=== PATIENT | male | born 1975 | race Caucasian/White ===

== ENCOUNTER 2024-11-23 16:41 | Emergency (ER) | payer SELFPAY ==
[~2024-11-23] VITALS: Ht 170.2 cm; Wt 77.3 kg
[2024-11-23 16:45] VITALS: BP 92/50; PULSE 102; RESP 16; TEMP 99; O2SAT 97
--- NOTE | 2024-11-23 16:46 | Physician Documentation ---
History of Present Illness ~ Stated Complaint: PALPITATIONS HPI 49-year-old male brought in by EMS for complaint of palpitations for the past 2 hours. Denies shortness of breath or chest pain. EMS he was sinus tach around 100 beats per minute, was seen last week for the same thing at [place]. Departure Referrals: NO PRIMARY CARE PROVIDER (PCP) Additional Comment Medical Screen Exam This patient recieved a medical screening examination. After reviewing the individual's medical complaints with presenting symptoms and performing an appropriate physical examination, it was determined that no emergency medical condition is present. This individual is also not a women having contractions. PENG CORTES [facility] Nov 23, 2024 16:46
--- NOTE | 2024-11-23 16:54 | ELECTROCARDIOGRAPH REPORT ---
[facility] Test Date: 2024-11-23 Test Time: 16:50:53 Pat Name: KRISTINA CUEVAS Department: [facility]- Patient ID: [facility]-[id number] Room: Gender: M Funeral Director: : 1975 Requested By: LESTER QUACH Order Number: [id number] Reading MD: Dr. Lester Quach Measurements Intervals [place] Rate: 98 P: 42 WA: 158 QRS: 38 QRSD: 84 T: 0 QT: 325 QTc: 415 Interpretive Statements Pacemaker spikes or artifacts Sinus rhythm Borderline abnrm T, anterolateral leads Electronically Signed On 11-23-2024 17:06:[address] Lester Quach Please click the below link to view image of tracing.
[2024-11-23 17:29] LABS: BASOPHILS % (AUTO) 0.5 % (0-1); EOSINOPHILS # (AUTO) 0.2 X10'3 (0-0.9); HEMATOCRIT 34.4 % (42.0-52.0); HEMOGLOBIN 11.8 g/dl (14.0-17.9); LYMPHOCYTES % (AUTO) 23.1 % (21-51); MEAN CORPUSCULAR HEMOGLOBIN 33.2 PG (27.0-31.0); MEAN CORPUSCULAR HGB CONC 34.4 g/dL (33.0-36.5); MEAN CORPUSCULAR VOLUME 96.6 FL (78-98); MEAN PLATELET VOLUME 8.9 FL (7.4-10.4); MONOCYTES # (AUTO) 0.4 X10'3 (0-0.9); MONOCYTES % (AUTO) 4.6 % (2-12); NEUTROPHILS % (AUTO) 69.8 % (42-75); PLATELET COUNT 240 X10'3 (140-440); RED BLOOD COUNT 3.56 X10'6 (4.70-6.10); RED CELL DISTRIBUTION WIDTH 13.6 % (11.5-14.5); WHITE BLOOD COUNT 8.6 X10'3 (4.5-11.0)
--- NOTE | 2024-11-23 17:42 | RADIOLOGY REPORT ---
EXAM: DI CHEST,SINGLE VIEW TECHNIQUE: Single frontal chest radiograph CLINICAL HISTORY: CP COMPARISON: None Findings/Impression: Frontal chest radiograph demonstrates no acute osseous or superficial soft tissue abnormalities. The trachea is midline. The cardiac silhouette and mediastinum are within normal limits. No pneumothorax, pleural effusions, or consolidations.
[2024-11-23 17:56] LABS: ALBUMIN 3.4 G/DL (3.4-5.0); ANION GAP 5 (8-16); BLOOD UREA NITROGEN 8 MG/DL (7-18); BUN/CREATININE RATIO 10.1 (10.0-20.0); CHLORIDE 108 MMOL/L (99-107); CREATININE 0.79 MG/DL (0.60-1.10); GLUCOSE 96 MG/DL (70-104); POTASSIUM 4.1 MMOL/L (3.5-5.1); PRO BRAIN NATRIURETIC PEPTIDE 596 PG/ML (0-125); SODIUM 142 MMOL/L (135-145); TOTAL CARBON DIOXIDE 29.1 MMOL/L (24-32); eCRCL 107 ML/MIN; eGFR > 90 ML/MIN
== END 2024-11-23 19:08 | disposition left against medical advice (07) ==
LOC: ER 16:43
DX: R00.2 Palpitations (principal)
CPT/HCPCS: 36415; 71045; 80048; 83880; 84484; 85025; 93005

== ENCOUNTER 2024-12-18 19:29 | Emergency (ER) | payer MEDICAID ==
[~2024-12-18] VITALS: Ht 162.6 cm; Wt 48.1 kg
[~2024-12-18 19:29] MED LIST: MUPI22OI30 TOP
[2024-12-18 19:32] VITALS: BP 119/81; PULSE 102; RESP 15; TEMP 96.8; O2SAT 98
--- NOTE | 2024-12-18 19:54 | Physician Documentation ---
History of Present Illness ~ Chief Complaint: Rash Stated Complaint: NECK LESION HPI 49 m returns to the ED for a rash on his neck is itchy and reports that he believes he has mites in the back of his neck. Recently been seen here in the ED for it. Patient has known methamphetamine user. Medication Reconciliation Allergies: Coded Allergies: No Known Allergies (Unverified , 12/18/24) Scheduled Mupirocin* (Bactroban*), 1 APPLIC TOP Q8H Past Medical History Past Medical History: No Pertinent History Physical Exam Vital Signs: Temperature: 96.8, Source: Temporal, Heart Rate: 102, Respiratory Rate: 15, BP: 119/81, Pulse Oximetry: 98, Weight: 48.100 Physical Exam General: Alert, no apparent distress. Skin: Normal color, warm and dry. No edema, no ecchymosis. Notable healing lesion with scar tissue in the area where patient states he has mites Progress Results/Orders Results/Orders Completed Orders - JEFFERSON JUNE [employer] Mupirocin Ointment (Bactroban Ointment) (12/18/24 19:48) Vital Signs 12/18/24 19:32 Temp 96.8 Pulse 102 Resp 15 B/P (MAP) 119/81 Pulse Ox 98 Medical Decision Making Findings Although this patient reports having might safe after an interview him, I suspect a delusions of parasitosis is a more appropriate differential. However I'm going to provide him with mupirocin for his various areas where he has picked at his skin Differential Dx:Considerations: Include: Abscess, AIDS/HIV, Anthrax (cutaneous), Atopic dermatitis, Candidiasis, Contact dermatitis, Drug reaction, Erythema multiforme, Erysipelas, Gangrene, Herpes zoster, Herpes simplex, Hidradenitis suppurativa, Impetigo, Intertrigo, Lymes disease, Molluscum contagiosum, Osteomyelitis, Pediculosis, Pityriasis rosea, Psoriaisis, RMSF, Rosacea, Scabies, Scarlet fever, Tinea, Urticaria, Varicella, Viral exanthema, Other Departure Disposition: HOME / SELF CARE / HOMELESS Impression: Primary Impression: Urticaria Additional Impression: Crust on skin Condition: Stable Discharge Instructions: Cellulitis, Adult, Pruritus Referrals: NO PRIMARY CARE PROVIDER (PCP) Prescriptions Mupirocin* (Bactroban*) 22 Gm Tube 1 APPLIC TOP Q8H for 5 Days, #15 GM apply to affected area(s) Prov: JEFFERSON JUNE NP 12/18/24 Signature Scribe Signature: y Attestation: Scribed for Emergency,Department by Jefferson June - THEODORE . 12/18/24 20:01 JEFFERSON JUNE NP Dec 18, 2024 19:54
[2024-12-18] MEDS ORDERED: MUPI22OI30 TOP (20:01)
== END 2024-12-18 20:06 | disposition home or self-care (01) ==
LOC: ER 19:29
DX: L50.9 Urticaria, unspecified (principal); R23.4 Changes in skin texture
CPT/HCPCS: 99283

== ENCOUNTER 2024-12-20 16:30 | Emergency (ER) | payer MEDICAID ==
[~2024-12-20] VITALS: Ht 165.1 cm; Wt 49.1 kg
[2024-12-20 16:35] VITALS: BP 108/74; PULSE 109; RESP 14; TEMP 97.4; O2SAT 98
--- NOTE | 2024-12-20 16:47 | Physician Documentation ---
History of Present Illness ~ Chief Complaint: Bite-insect Stated Complaint: SKIN ISSUES Time Seen by MD: 16:46 HPI 49 yr old un-housed male presents to the emergency department reporting that he was bit on his left index finger by an unknown insect. He reports that he is concerned about infection and bugs entering the wound because it is very hot outside. Tetanus within 5 years?: Yes Medication Reconciliation Allergies: Coded Allergies: No Known Allergies (Unverified , 12/20/24) Scheduled Mupirocin* (Bactroban*), 1 APPLIC TOP Q8H Mupirocin* (Bactroban*), 1 APPLIC TOP Q8H Past Medical History Past Medical History: No Pertinent History Physical Exam Vital Signs: Temperature: 97.4, Source: Temporal, Heart Rate: 109, Respiratory Rate: 14, BP: 108/74, Pulse Oximetry: 98, Weight: 49.150 Physical Exam General: Alert, no apparent distress. Neck: Full range of motion. Respiratory: Lungs clear, no respiratory distress. Chest: No accessory muscle use. Cardiovascular: Regular rate and rhythm, no murmurs. Gastrointestinal: Soft, nontender, nondistended. Bowels sounds present. Extremities: Normal range of motion, no deformity. Neurologic: Oriented x4. Psychiatric: Normal mood and affect. Skin: Normal color, warm and dry. No edema, no ecchymosis. Superficial ovoid open area left index finger measuring approx 4 mm. No surrounding erythema. No purulent discharge. Progress Results/Orders Results/Orders Vital Signs 12/20/24 16:35 Temp 97.4 Pulse 109 Resp 14 B/P (MAP) 108/74 Pulse Ox 98 Medical Decision Making Differential Dx:Considerations: Include: Abrasion, Allergic reaction, Anap hylaxis, Cellulitis, Contusion, Fracture, Hematoma, Insect envenomation, Laceration, Neurovascular injury, Punture wound, Retained foreign body, Urticaria Departure Time of Disposition: 16:51 Disposition: 01 HOME / SELF CARE / HOMELESS Impression: Primary Impression: Wound Condition: Stable Discharge Instructions: Insect Bite, Adult, [id number] Additional Instructions: keep the wound clean and covered. Change bandaid daily. Return if worse. Referrals: NO PRIMARY CARE PROVIDER (PCP) Education Educated: Patient Educated regarding: diagnosis, treatment, prognosis, need for follow up Signature Scribe Signature: x Attestation: The note accurately reflects work and decisions made by me.Sven Arias NP 12/20/24 16:52 SVEN BARRIENTOS NP Dec 20, 2024 16:47
[2024-12-20] MEDS: bacitracin 15gm ointment TP ONE (16:56)
== END 2024-12-20 17:00 | disposition home or self-care (01) ==
LOC: ER 16:31
DX: S61.251A Open bite of left index finger without damage to nail, initial encounter (principal); Z59.00 Homelessness unspecified; Z79.899 Other long term (current) drug therapy; W57.XXXA Bitten or stung by nonvenomous insect and other nonvenomous arthropods, initial encounter; Y93.89 Activity, other specified; Y92.89 Other specified places as the place of occurrence of the external cause; Y99.8 Other external cause status
CPT/HCPCS: 99282

== ENCOUNTER 2024-12-21 06:17 | Emergency (ER) | payer MEDICAID ==
[~2024-12-21] VITALS: Ht 170.2 cm; Wt 75.0 kg
[2024-12-21 06:21] VITALS: BP 156/78; PULSE 107; RESP 18; TEMP 98.3; O2SAT 100
--- NOTE | 2024-12-21 06:50 | Physician Documentation ---
History of Present Illness General Chief Complaint: See Chief Complaint Stated Complaint: MENTAL HEALTH Time Seen by MD: 06:38 Primary Medical Doctor: None History of Present Illness Initial Comments The patient is a 49-year-old male with a history of psychiatric illness who comes in today with multiple delusional complaints (e.g., I was attacked by an surgeons and they made me yell at them.) He was here yesterday complaining that he had been bitten by an unknown insect on his finger and was concerned that other insects would find their way through the wound into his body. He denies any suicidal or homicidal thoughts. Medication Reconciliation Allergies: Coded Allergies: No Known Allergies (Unverified , 12/20/24) Scheduled Mupirocin* (Bactroban*), 1 APPLIC TOP Q8H Mupirocin* (Bactroban*), 1 APPLIC TOP Q8H Past Medical History Past Medical History: No Pertinent History Review of Systems ROS Constitutional: Denies chills, fatigue, fever, weight gain or weight loss. HEENT: Denies hearing loss, sinus pressure or visual changes. Respiratory: Denies cough, shortness of breath or wheezing. Cardiovascular: Denies chest pain, pain while walking (claudication), edema or palpitations. Gastrointestinal: Denies abdominal pain, blood in stool, constipation, diarrhea, heartburn, loss of appetite, nausea or vomiting. Genitourinary: Denies painful urination (dysuria), excessive amount of urine (polyuria) or urinary frequency. Metabolic/Endocrine: Denies cold intolerance, heat intolerance, excessive thirst (polydipsia) or excessive hunger (polyphagia). Neurological: Denies dizziness, extremity numbness, extremity weakness, headaches, seizures or tremors. Psychiatric: Patient complains of anxiety. He denies suicidal/homicidal ideation. Integumentary: Denies breast discharge, breast lump, hives, mole change(s), rash or skin lesion. Musculoskeletal: Denies back pain, joint pain, joint swelling or neck pain. Hematologic: Denies easily bleeding, easily bruises, lymphedema or issues with blood clots. Immunologic: Denies food allergies or seasonal allergies. Physical Exam Physical Exam Vital Signs: Temperature: 98.3, Source: Oral, Heart Rate: 107, Respiratory R ate: 18, BP: 156/78, Pulse Oximetry: 100, Weight: 75.000 Physical Exam Physical Exam Vitals and nursing note reviewed. Constitutional: General: Patient is awake, alert, oriented x 4 in no acute distress and well appearing. Speech is clear and lucid. Appearance: Normal appearance. Patient is not ill-appearing, toxic-appearing or diaphoretic. HENT: Head: Normocephalic and atraumatic. Mouth/Throat: Mouth: Mucous membranes are moist. Pharynx: Oropharynx is clear. Eyes: General: No scleral icterus. Extraocular Movements: Extraocular movements intact. Pupils: Pupils are equal, round, and reactive to light. Cardiovascular: Rate and Rhythm: Normal rate and regular rhythm. Heart sounds: No murmur heard. Pulmonary: Effort: No respiratory distress. Breath sounds: No wheezing, rhonchi or rales. Abdominal: General: There is no distension. Palpations: There is no fluid wave, hepatomegaly or mass. Tenderness: There is no abdominal tenderness. There is no guarding. Musculoskeletal: General: No swelling or deformity. Skin: Coloration: Skin is not jaundiced. Findings: No erythema or rash. Neurological: Mental Status: Patient is alert. Progress Results/Orders Results/Orders Vital Signs 12/21/24 06:21 Temp 98.3 Pulse 107 Resp 18 B/P (MAP) 156/78 Pulse Ox 100 Medical Decision Making Findings This patient does not meet criteria for a hold. I am providing him with outpatient psychiatric service locations. Departure Disposition: HOME / SELF CARE / HOMELESS Impression: Primary Impression: Chronic mental illness Condition: Stable Additional Instructions: Please go to one of the mental health facilities listed on the handout paper you were given here. Referrals: NO PRIMARY CARE PROVIDER (PCP) Education Educated: Patient Educated regarding: diagnosis, need for follow up Signature Scribe Signature: . Attestation: . LUIGI WHITE MD Dec 21, 2024 06:50
== END 2024-12-21 07:10 | disposition home or self-care (01) ==
LOC: ER 06:18
DX: F22 Delusional disorders (principal); Z79.899 Other long term (current) drug therapy
CPT/HCPCS: 99282

== ENCOUNTER 2024-12-22 20:35 | Emergency (ER) | payer MEDICAID ==
[~2024-12-22] VITALS: Ht 170.2 cm; Wt 47.7 kg
[2024-12-22 20:52] VITALS: BP 99/46; PULSE 62; RESP 15; TEMP 96.8; O2SAT 97
[2024-12-22] MEDS: LIDOcaine 1% W/epiNEPHrine 1:100,000 20ml vial SQ STA (22:52)
== END 2024-12-22 23:51 | disposition left against medical advice (07) ==
LOC: ER 20:35
DX: S10.90XA Unspecified superficial injury of unspecified part of neck, initial encounter (principal); Z53.21 Procedure and treatment not carried out due to patient leaving prior to being seen by health care provider; X58.XXXA Exposure to other specified factors, initial encounter; Y93.89 Activity, other specified; Y92.89 Other specified places as the place of occurrence of the external cause; Y99.8 Other external cause status

== ENCOUNTER 2024-12-28 22:33 | Emergency (ER) | payer MEDICAID ==
[2024-12-28 22:49] VITALS: BP 108/59; PULSE 95; RESP 17; O2SAT 99
[2024-12-28] MEDS ORDERED: NAPR-1168 PO (22:56)
--- NOTE | 2024-12-28 22:57 | Physician Documentation ---
History of Present Illness ~ Chief Complaint: Hand pain Stated Complaint: MULTIPLE MED COMPLAINT Primary Medical Doctor: None HPI 49-year-old male with complaints of difficulty fully extending and flexing his fingers at the PIP joint no obvious injury. Tetanus within 5 years: Yes Medication Reconciliation Allergies: Coded Allergies: No Known Allergies (Unverified , 12/22/24) Scheduled Mupirocin* (Bactroban*), 1 APPLIC TOP Q8H Discontinued Medications Mupirocin* (Bactroban*), 1 APPLIC TOP Q8H Discontinued Reason: Auto Discontinued Past Medical History Past Medical History: No Pertinent History Review of Systems All Other Systems at this time: Reviewed and Negative Musculoskeletal: Reports: see HPI Physical Exam Vital Signs: RN Vital Signs have been reviewed: Yes, Heart Rate: 95, Respiratory Rate: 17, BP: 108/59, Pulse Oximetry: 99 Oxygen Flow Rate: 0 Physical Exam General: Alert, no apparent distress. Respiratory: Lungs clear, no respiratory distress. Chest: No accessory muscle use. Cardiovascular: Regular rate and rhythm, no murmurs. Gastrointestinal: Soft, nontender, nondistended. Bowels sounds present. Extremities: Normal range of motion, no deformity. Abuse joint deformity erythema or induration no crepitus with making a fist. Patient's main concern is his right 3rd finger PIP joint nontender to palpate Neurologic: Oriented x4. Psychiatric: Normal mood and affect. Skin: Normal color, warm and dry. No edema, no ecchymosis. Progress Results/Orders Results/Orders Vital Signs 12/28/24 22:49 Pulse 95 Resp 17 B/P (MAP) 108/59 Pulse Ox 99 O2 Flow Rate 0 Medical Decision Making Findings No obvious emergent objective finding patient wanted an x-ray of his joints of his fingers Departure Time of Disposition: 22:56 Impression: Primary Impression: Arthritis Condition: Stable Discharge Instructions: Arthritis, Nonspecific Additional Instructions: Take anti-inflammatories as prescribed follow up with primary care for further evaluation Referrals: NO PRIMARY CARE PROVIDER (PCP) Prescriptions Naproxen (Naproxen) 500 Mg Tablet 1 TAB PO Q12H for pain for 30 Days, #60 TAB 0 Refills Prov: ANANYA DENISE DIRECTOR OF TEACHER EDUCATION 12/28/24 Education Educated: Patient Educated regarding: diagnosis, treatment, need for follow up Signature Scribe Signature: No Scribe Attestation: The note accurately reflects work and decisions made by me.Ananya Denise - DUNCAN 12/28/24 22:57 ANANYA DENISE NP Dec 28, 2024 22:57
== END 2024-12-28 23:17 | disposition home or self-care (01) ==
LOC: ER 22:34
DX: M19.041 Primary osteoarthritis, right hand (principal)
CPT/HCPCS: 99282

== ENCOUNTER 2024-12-30 22:13 | Emergency (ER) | payer MEDICAID ==
[~2024-12-30] VITALS: Ht 170.2 cm; Wt 63.2 kg
[~2024-12-30 22:13] MED LIST changes: +NAPR-1168 PO
[2024-12-30 22:22] VITALS: BP 93/58; PULSE 98; RESP 16; O2SAT 97
--- NOTE | 2024-12-30 22:41 | Physician Documentation ---
History of Present Illness ~ Chief Complaint: Wound Re-Check Stated Complaint: WOUND RECHECK Time Seen by MD: 22:39 Primary Medical Doctor: None HPI Patient presents to the emergency room with an abrasion to his posterior left neck. He checked in here proximally one-week ago but left before being seen for same complaint. Tetanus within 5 years?: Yes Medication Reconciliation Allergies: Coded Allergies: No Known Allergies (Unverified , 12/22/24) Scheduled Mupirocin* (Bactroban*), 1 APPLIC TOP Q8H Naproxen (Naproxen), 1 TAB PO Q12H Discontinued Medications Mupirocin* (Bactroban*), 1 APPLIC TOP Q8H Discontinued Reason: Auto Discontinued Past Medical History Past Medical History: No Pertinent History Review of Systems ROS All review of systems negative except as per HPI Physical Exam Vital Signs: Temperature: 98.4, Heart Rate: 98, Respiratory Rate: 16, BP: 93 /58, Pulse Oximetry: 97, Weight: 63.200 Oxygen Flow Rate: 0 Physical Exam General: Patient is awake, alert, oriented x4 in no acute distress Head: Normocephalic and atraumatic. Eyes: Conjunctival normal. EOMI. PERRL. ENT: Mucous membranes moist. Neck: Supple, trachea is midline. Partial-thickness abrasion to his posterior left neck measuring a proximally 1 cm with no signs of infection Chest: Clear to auscultation bilaterally without rales, rhonchi, or wheezes. There is no accessory muscle use or retractions. Cardiac: RRR without murmurs, gallops, or rubs. Progress Results/Orders Results/Orders Vital Signs 12/30/24 22:22 Temp 98.4 Pulse 98 Resp 16 B/P (MAP) 93/58 Pulse Ox 97 O2 Flow Rate 0 Medical Decision Making Findings Patient presents to the emergency room with wound to his neck as per HPI. Differentials include but are not limited to abrasion, foreign body, cellulitis. Physical exam is reassuring. He had not feel patient requires systemic antibiotics. I do not suspect foreign body Departure Disposition: HOME / SELF CARE / HOMELESS Impression: Primary Impression: Wound Condition: Stable Discharge Instructions: Wound Care, Adult Additional Instructions: Your wound is just about healed. Try not to scratch or pick at it Referrals: NO PRIMARY CARE PROVIDER (PCP) Signature Scribe Signature: No scribe Attestation: The note accurately reflects work and decisions made by me.Baldomero Juárez MD 12/30/24 22:44 BALDOMERO JUÁREZ MD Dec 30, 2024 22:41
[2024-12-30 22:52] VITALS: TEMP 98.4
[2024-12-30] MEDS: bacitracin 15gm ointment TP ONE (22:52)
== END 2024-12-30 22:53 | disposition home or self-care (01) ==
LOC: ER 22:13
DX: S10.91XA Abrasion of unspecified part of neck, initial encounter (principal); X58.XXXA Exposure to other specified factors, initial encounter; Y93.89 Activity, other specified; Y92.89 Other specified places as the place of occurrence of the external cause; Y99.8 Other external cause status
CPT/HCPCS: 99282